=== PATIENT | female | born 1980 | race Caucasian/White ===

== ENCOUNTER 2022-06-02 09:19 | Outpatient (CLI) | payer BC, SELFPAY ==
[2022-06-02 13:01] LABS: Thyroid Stimulating Hormone* 0.088 uIU/mL (0.270-4.20)
== END 2022-06-02 09:20 | disposition home or self-care (01) ==
LOC: NFLDREF 09:21
PROVIDERS: PCP Internal Medicine; Visit Provider Obstetrics & Gynecology
DX: N92.6 Irregular menstruation, unspecified (principal)
CPT/HCPCS: 84443

== ENCOUNTER 2022-09-03 09:34 | Outpatient (CLI) | payer BC, SELFPAY | END 2022-09-03 09:35 | disposition home or self-care (01) | LOC: NFLDREF 09-05 02:10 | PROVIDERS: PCP Internal Medicine; Referring Provider Internal Medicine; Visit Provider Obstetrics & Gynecology | DX: N92.6 Irregular menstruation, unspecified (principal); R53.83 Other fatigue | CPT/HCPCS: 84443 ==

== ENCOUNTER 2022-09-09 08:46 | Outpatient (CLI) | payer BC, SELFPAY ==
--- NOTE | 2022-09-09 09:15 | CRLHL7_ITS ---
For Patients: As a result of the Century Cures Act, medical imaging exams and procedure reports are released immediately into your electronic medical record. You may view this report before your referring provider. If you have questions, please contact your health care provider. BILATERAL SCREENING MAMMOGRAM WITH COMPUTER-AIDED DETECTION AND TOMOSYNTHESIS TECHNIQUE: CC and MLO views were obtained. These mammographic images have been obtained using full-field digital technique. These mammographic images were interpreted with the benefit of computer-aided detection. Breast tomosynthesis was used in this interpretation. COMPARISON FILM: 07/11/21, 05/07/20, 04/06/19. FINDINGS: There are scattered areas of fibroglandular density. IMPRESSION: There is no radiographic evidence for malignancy. ASSESSMENT: BI-RADS Category 1: Negative RECOMMENDATION: Routine screening mammogram in 1 year. A lay language report of this examination will be provided to the patient. OSWALDO MARES M.D. Diagnostic Radiologist [email or web address] Transcribed: 09/09/2022, 1:[address]/Dictated by: Oswaldo Mares MD @ 09/09/2022 12:07:00 PM (Electronically Signed)
== END 2022-09-09 08:47 | disposition home or self-care (01) ==
LOC: MAMMO 08:47
PROVIDERS: PCP Internal Medicine; Visit Provider Obstetrics & Gynecology
DX: Z12.31 Encounter for screening mammogram for malignant neoplasm of breast (principal)
CPT/HCPCS: 77063; 77067

== ENCOUNTER 2022-09-11 07:16 | Outpatient (CLI) | payer BC, SELFPAY ==
--- NOTE | 2022-09-11 07:50 | W.ANESCHARGE ---
Anesthesia Charges Start Date/Time Anesthesia Start Date: 09/11/22 Anesthesia Start Time: 07:59 Stop Date/Time Anesthesia Stop Date: 09/11/22 Anesthesia Stop Time: 08:40
--- NOTE | 2022-09-11 09:05 | W.ANESCHARGE ---
Anesthesia Charges Start Date/Time Anesthesia Start Date: 09/11/22 Anesthesia Start Time: 07:59 Stop Date/Time Anesthesia Stop Date: 09/11/22 Anesthesia Stop Time: 08:40
== END 2022-09-11 07:17 | disposition home or self-care (01) ==
LOC: OP CLINIC 07:18
PROVIDERS: PCP Internal Medicine; Visit Provider Surgery
DX: Z12.11 Encounter for screening for malignant neoplasm of colon (principal); K63.5 Polyp of colon; K57.30 Diverticulosis of large intestine without perforation or abscess without bleeding; Z80.0 Family history of malignant neoplasm of digestive organs
CPT/HCPCS: 45380; 811; 88305; J2704

== ENCOUNTER 2023-10-28 14:15 | Outpatient (CLI) | payer BC, SELFPAY ==
--- OUTSIDE RECORDS SUMMARY | 2023-10-28 14:18 | XMS_ITS | Clinical Summary ---
Author Name Unknown Organization [facility] Address [address] [address] Phone Care Team Providers Care Cage Fighter Name Role Phone Elsewhere, Pcp Primary Care Provider Unavailabl e Allergies Active Allergy Reactions Criticality Noted Date Comments Lactose Intolerance (Gi) 12/25/2012 Medications Medication Sig Dispensed Refills Start Date End Date Status Propranolol HCl (INDERAL OR) Take by mouth. Active ondansetron (ZOFRAN ODT) 4 MG disintegrating tablet Take 1 Tab by mouth every eight hours as needed for Nausea or Vomiting. 10 Tab 0 12/25/2012 Active HYDROcodone-acetamino phen (NORCO) 5-325 MG per tablet Take 1-2 Tabs by mouth every six hours as needed for Pain. Acetaminophen should be limited to 4000 mg per day. 30 Tab 0 12/25/2012 Active docusate sodium (COLACE) 100 MG capsule Take 1 Cap by mouth two times a day. 30 Cap 0 12/25/2012 Active Surgical History Surgery Date Site/Laterality Comments SECTION X2 Medical History Medical History Date Comments Migraine headache Social History Tobacco Use Types Packs/Day Years Used Date Smoking Tobacco: Never Alcohol Use Standard Drinks/Week Comments No 0 (1 standard drink = 0.6 oz pur e alcohol) Sex and Gender Information Value Date Recorded Sex Assigned at Not on file Gender Identity Not on file Sexual Orientation Not on file Obstetrics History Last Filed Vital Signs Vital Sign Reading Time Taken Comments Blood Pressure 103/61 12/25/2012 2:01 AM CDT Pulse 57 12/25/2012 2:01 AM CDT Temperature 36.4 ??C (97.5 ??F) 12/25/2012 12:55 AM C DT Respiratory Rate 16 12/25/2012 2:01 AM CDT Oxygen Saturation 98% 12/25/2012 2:01 AM CDT Inhaled Oxygen Concentration - - Weight 51.3 kg (113 lb) 12/25/2012 12:55 AM CDT Height 162.6 cm (5' 4.02) 12/25/2012 12:55 AM C DT Body Mass Index 19.39 12/25/2012 12:55 AM CDT Plan of Treatment Not on file Care Teams Cage Fighter Relationship Specialty Start Date End Date Elsewhere, Pcp PCP - General 12/25/12
--- OUTSIDE RECORDS SUMMARY | 2023-10-28 14:18 | XMS_ITS | Clinical Summary ---
Author Name Unknown Organization [facility] Address [place], [place] [address] Care Team Providers Care Filling Winder Name Role Phone Health, Family Primary Care Provider Unavailabl e Allergies No known active allergies Medications Medication Sig Dispensed Refills Start Date End Date Status propranolol ER (INDERAL LA) 80 mg Cs24 Sustained-Release capsule Take by mouth once daily. 0 05/26/2016 Active vitamin-folic acid 1 mg ( VITAMIN) tablet/capsule Take 1 tablet by mouth once daily. 0 05/26/2016 Active fluticasone (50 mcg per actuation) nasal solution (FLONASE)Indications: Sinusitis, unspecified chronicity, unspecified location Inhale 1 [place] into both nostrils once daily. 1 Bottle 2 05/26/2016 Active Active Problems No known active problems Social History Tobacco Use Types Packs/Day Years Used Date Smoking Tobacco: Never Smokeless Tobacco: Never Tobacco Cessation:Counseling Given: Yes Sex and Gender Information Value Date Recorded Sex Assigned at Not on file Gender Identity Not on file Sexual Orientation Not on file Obstetrics History Para Term AB IAB SAB Ectopic Multiple Livin g Live Births 4 3 3 3 Date Outcome GA Total Labor Labor/2nd/3rd Weight Sex Delivery Anes PTL Lelo A1 A5 Name Cl in Term Term Term Last Filed Vital Signs Vital Sign Reading Time Taken Comments Blood Pressure 109/71 01/23/2018 8:55 AM CDT Pulse 68 01/23/2018 8:55 AM CDT Temperature 37.2 ??C (99 ??F) 01/23/2018 8:55 AM CDT Respiratory Rate - - Oxygen Saturation 100% 01/23/2018 8:55 AM CDT Inhaled Oxygen Concentration - - Weight 55.5 kg (122 lb 6.4 oz) 01/23/2018 8:55 A M CDT Height 162 cm (5' 3.78) 01/23/2018 8:55 AM CDT Body Mass Index 21.16 01/23/2018 8:55 AM CDT Plan of Treatment Health Maintenance Due Date Last Done Comments Tdap 1989 Depression screening for age 12+ 1990 HIV for age 15-65 1993 Hepatitis C screening for age 18-79 1996 Tetanus booster 1998 BMI (ht and wt on same day) for age 18+ 01/23/2019 01/23/2018 COVID-19 vaccine series (2022- season) 2023 Colonoscopy through age 75 2023 Lipids for age 45-75 2023 Mammogram for age 45-75 2023 Influenza for age 9-49 02/21/2024 Pap test for age 21-65 07/10/2026 , 07/10/2023, 02/08/2018, Additional history exists Pneumococcal series for age 6-64 Aged Out No longer eligible based on patient's age to complete this topic Procedures Procedure Name Priority Date/Time Associated Diagnosis Comments HPV THIN PREP Routine 07/10/2023 9:50 AM YEAST CULTURE DEVELOPER from Last 3 Months or Most Recently Relevant to Health Maintenance Results * HPV HIGH RISK (07/10/2023 9:50 AM YEAST CULTURE DEVELOPER) TYPE 16 Negative Negative 07/15/2023 5:12 PM YEAST CULTURE DEVELOPER [facility] TYPE 18 Negative Negative 07/15/2023 5:12 PM YEAST CULTURE DEVELOPER [facility] OTHER HIGH RISK TYPES Negative Negative 07/15/2023 5:12 PM YEAST CULTURE DEVELOPER [facility] Other (Cervical) 07/10/2023 9:50 AM YEAST CULTURE DEVELOPER 07/13/2023 5:31 PM YEAST CULTURE DEVELOPER [facility]ative [facility] - 07/15/2023 5:12 PM YEAST CULTURE DEVELOPER HPV types 16, 18, 31, 33, 35, 39, 45, 51, 52, 56, 58, 59, 66 and 68 DNA were undetectable or below the pre-set threshold. Methodology: Chinyere Alena 4800 HPV Test Sana Vieira MD MICROBIOLOGY [facility] [address] [place] [phone], from Last 3 Months or Most Recently Relevant to Health Maintenance Care Teams Filling Winder Relationship Specialty Start Date End Date Health, Family PCP - General 05/26/16
--- OUTSIDE RECORDS SUMMARY | 2023-10-28 14:18 | XMS_ITS | Clinical Summary ---
Author Name Unknown Organization [facility] Address [address] [place] [address] Care Team Providers Care Chemistry Quality Control Analyst Name Role Phone None, Pcp Primary Care Provider Unavailabl e Medications Medication Sig Dispensed Refills Start Date End Date Status propranolol (INDERAL) 10 MG tablet Take by mouth Unsure of Dose 0 Active Social History Tobacco Use Types Packs/Day Years Used Date Smoking Tobacco: Never Smokeless Tobacco: Never Tobacco Cessation:Counseling Given: Not Answered Sex and Gender Information Value Date Recorded Sex Assigned at Not on file Gender Identity Not on file Sexual Orientation Not on file Last Filed Vital Signs Vital Sign Reading Time Taken Comments Blood Pressure 110/63 05/07/2023 9:09 AM WEBSITE PROJECT MANAGER Pulse 57 05/07/2023 9:09 AM WEBSITE PROJECT MANAGER Temperature - - Respiratory Rate - - Oxygen Saturation - - Inhaled Oxygen Concentration - - Weight 54.9 kg (121 lb) 05/07/2023 9:09 AM WEBSITE PROJECT MANAGER Height 162.6 cm (5' 4) 05/07/2023 9:09 AM WEBSITE PROJECT MANAGER Body Mass Index 20.77 05/07/2023 9:09 AM WEBSITE PROJECT MANAGER Plan of Treatment Health Maintenance Due Date Last Done Comments CT Colonography 1978 Colonoscopy 1978 Colorectal Cancer Screening 1978 FIT-DNA 1978 Mammogram 1978 Pap Smear 1978 Sigmoidoscopy 1978 iFOBT 1978 DTaP,Tdap,and Td Vaccines (3 - Td or Tdap) 06/23/2026 06/23/2016, 07/05/2014, 10/02/2010, Additional history exists COVID-19 Vaccine Completed 03/26/2023, 04/2022, 10/25/2020, Additional history exists Influenza Vaccine Completed 03/26/2023, , 04/05/2021, Additional history exists HPV Vaccines Aged Out No longer eligi ble based on patient's age to complete this topic Pneumococcal Vaccine: Pediatrics (0 to 5 Years) and At-Risk Patients (6 to 64 Years) Aged Out No longer eligible based on patient's age to complete this topic Care Teams Chemistry Quality Control Analyst Relationship Specialty Start Date End Date None, Pcp [address] [place] [address] PCP - General Landscape Nurseryman 05/04/23
--- NOTE | 2023-10-28 14:40 | MM_ITS ---
Patient: JERONIMO REED Facility:?[facility] Patient ID:?[id number] Site Patient ID:?[id number] Site :?[id number] Study:?XRay-Breast Bilateral 3D W/CAD-10/28/2023 2:37:26 PM Ordering Physician:Sana Schwab Final Report: BILATERAL SCREENING MAMMOGRAM WITH COMPUTER-AIDED DETECTION AND TOMOSYNTHESIS TECHNIQUE: CC and MLO views were obtained. These mammographic images have been obtained using full-field digital technique. These mammographic images were interpreted with the benefit of computer-aided detection. Breast Tomosynthesis was used in this interpretation. COMPARISON FILM: 09/19/22, 07/11/21, 05/08/21. FINDINGS: There are scattered areas of fibroglandular density. IMPRESSION: There is no radiographic evidence for malignancy. ASSESSMENT: BI-RADS Category 1: Negative RECOMMENDATION: Routine screening mammogram in 1 year. A lay language report of this examination will be provided to the patient. Oswaldo Hill M.D. Diagnostic Radiologist [email or web address] DSM/sp R& Transcribed: 7:46 p.m. SP/Dictated by: Oswaldo Hill MD @ 10/29/2023 8:31:00 AM Signed by:?Oswaldo Hill MD @10/29/2023 8:30:03 PM (Electronic Signature)
== END 2023-10-28 14:16 | disposition home or self-care (01) ==
LOC: MAMMO 14:17
PROVIDERS: PCP Internal Medicine; Visit Provider Obstetrics & Gynecology
DX: Z12.31 Encounter for screening mammogram for malignant neoplasm of breast (principal)
CPT/HCPCS: 77063; 77067

== ENCOUNTER 2024-11-17 08:11 | Outpatient (CLI) | payer BC, SELFPAY ==
--- NOTE | 2024-11-17 08:15 | CRLHL7_ITS ---
For Patients: As a result of the Century Cures Act, medical imaging exams and procedure reports are released immediately into your electronic medical record. You may view this report before your referring provider. If you have questions, please contact your health care provider. INDICATION: BILATERAL DIAGNOSTIC MAMMOGRAM, ASYMPTOMATIC 44 Y/O FEMALE COMPARISON: 10/28/2023, 09/09/2022, 07/11/2021 TECHNIQUE: Digital mammogram in CC and MLO projections including computer-aided detection (CAD) and tomosynthesis. BREAST COMPOSITION: There are scattered areas of fibroglandular density. FINDINGS: No suspicious findings. ASSESSMENT: BI-RADS 1 Negative RECOMMENDATION: Annual screening mammogram. A lay language report of this examination will be provided to the patient. Dictated by: Oswaldo Hill MD @ 11/17/2024 11:05:24 (Electronically Signed)
== END 2024-11-17 08:12 | disposition home or self-care (01) ==
LOC: MAMMO 08:11
PROVIDERS: PCP Internal Medicine; Visit Provider Internal Medicine
DX: Z12.31 Encounter for screening mammogram for malignant neoplasm of breast (principal)
CPT/HCPCS: 77063; 77067